=== PATIENT | female | born 2000 | race African-American/Black ===

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

== ENCOUNTER 2018-04-06 20:29 | Emergency (ER) | payer OTHER ==
[~2018-04-06] VITALS: Ht 160 cm; Wt 95.3 kg
[~2018-04-06 20:29] MED LIST changes: +FLAGYL500 MG PO; +ONDANSETRON HCL4 M2 PO
[2018-04-06] MEDS ORDERED: AMOXICILLIN875 MG PO (21:33)
[2018-04-06] MEDS ORDERED: IBUPROFEN 400400 M2 PO (21:33)
[2018-04-06 21:58] VITALS: BP 126/62
== END 2018-04-06 21:45 | disposition home or self-care (01) ==
LOC: ER 20:29
DX: H61.21 Impacted cerumen, right ear (principal); J45.909 Unspecified asthma, uncomplicated

== ENCOUNTER 2018-09-05 00:03 | Emergency (ER) | payer OTHER ==
[~2018-09-05] VITALS: Ht 160 cm; Wt 108.9 kg
[~2018-09-05 00:03] MED LIST changes: +AMOXICILLIN875 MG PO; +IBUPROFEN 400400 M2 PO
[2018-09-05 00:25] LABS: URINE BILIRUBIN NEGATIVE (Negative); URINE BLOOD NEGATIVE (Negative); URINE CLARITY CLEAR; URINE COLOR YELLOW; URINE GLUCOSE-RANDOM* NEGATIVE (Negative); URINE KETONES NEGATIVE (Negative); URINE LEUKOCYTES-REFLEX NEGATIVE (Negative); URINE NITRITE-REFLEX NEGATIVE (Negative); URINE PROTEIN (DIPSTICK) NEGATIVE (Negative); URINE SPECIFIC GRAVITY 1.015 (1.005-1.035); URINE UROBILINOGEN 0.2 E.U./dl (0.2-1.0)
[2018-09-05 00:49] LABS: ABSOLUTE NEUTROPHILS 5.8 thou/uL (1.4-8.2); BASOPHILS 0.7 % (0.0-2.0); EOSINOPHILS 2.5 % (0.0-3.0); HEMATOCRIT 33.3 % (37.0-47.0); LYMPHOCYTES 32.8 % (24.0-44.0); MCH 25.7 pg (26.0-34.0); MCV 77.8 fL (80.0-100.0); MONOCYTES 6.2 % (1.0-8.0); PLATELET COUNT 317 thou/uL (150-400); POLYS 57.8 % (36.0-66.0); RBC 4.27 mil/uL (4.20-5.00); RDW 16.2 % (10.5-14.5)
[2018-09-05 00:54] LABS: CALCIUM 8.8 mg/dL (8.5-10.1); CREATININE 0.8 mg/dL (0.6-1.0); POTASSIUM 3.4 mmol/L (3.5-5.1)
[2018-09-05 00:59] LABS: ALBUMIN 3.5 g/dL (3.4-5.0); TOTAL BILIRUBIN 0.2 mg/dL (<0.1-1.0); TOTAL PROTEIN 8.2 g/dL (6.4-8.2)
[2018-09-05] MEDS ORDERED: NAPROSYN500 MG PO (01:56)
[2018-09-05] MEDS ORDERED: ONDANSETRON HCL4 M2 PO (01:56)
[2018-09-05 02:30] VITALS: BP 118/46
== END 2018-09-05 02:31 | disposition home or self-care (01) ==
LOC: ER 00:03
PROVIDERS: Emergency Medicine
DX: N93.8 Other specified abnormal uterine and vaginal bleeding (principal); Z90.721 Acquired absence of ovaries, unilateral; Z88.5 Allergy status to narcotic agent

== ENCOUNTER 2018-10-23 19:17 | Emergency (ER) | payer OTHER ==
[~2018-10-23] VITALS: Ht 160 cm; Wt 99.8 kg
[~2018-10-23 19:17] MED LIST changes: +NAPROSYN500 MG PO
[2018-10-23 20:08] LABS: ABSOLUTE NEUTROPHILS 9.2 thou/uL (1.4-8.2); BASOPHILS 0.5 % (0.0-2.0); EOSINOPHILS 0.5 % (0.0-3.0); HEMATOCRIT 31.9 % (37.0-47.0); HEMOGLOBIN 10.4 gm/dL (12.0-15.0); MCH 25.3 pg (26.0-34.0); MCHC 32.6 g/dL (28.0-37.0); MCV 77.6 fL (80.0-100.0); MONOCYTES 4.3 % (1.0-8.0); PLATELET COUNT 294 thou/uL (150-400); POLYS 79.7 % (36.0-66.0); RBC 4.11 mil/uL (4.20-5.00); RDW 15.7 % (10.5-14.5); WBC 11.5 thou/uL (4.0-11.0)
[2018-10-23 20:20] LABS: CALCIUM 9.1 mg/dL (8.5-10.1); CREATININE 0.6 mg/dL (0.6-1.0); POTASSIUM 3.9 mmol/L (3.5-5.1)
[2018-10-23 20:27] LABS: ALBUMIN 3.6 g/dL (3.4-5.0); TOTAL BILIRUBIN 0.3 mg/dL (<0.1-1.0); TOTAL PROTEIN 8.2 g/dL (6.4-8.2)
[2018-10-23 21:06] LABS: URINE BILIRUBIN NEGATIVE (Negative); URINE BLOOD 2+ (Negative); URINE CLARITY CLEAR; URINE COLOR YELLOW; URINE GLUCOSE-RANDOM* NEGATIVE (Negative); URINE KETONES 3+ (Negative); URINE LEUKOCYTES-REFLEX NEGATIVE (Negative); URINE NITRITE-REFLEX NEGATIVE (Negative); URINE PROTEIN (DIPSTICK) NEGATIVE (Negative); URINE SPECIFIC GRAVITY >= 1.030 (1.005-1.035); URINE UROBILINOGEN 0.2 E.U./dl (0.2-1.0)
[2018-10-23 21:47] LABS: HYALINE CASTS 0-3 Few /LPF (None Seen); MUCUS >6 Heavy strn/LPF (None Seen); SQUAMOUS 0-3 Few /LPF (0-3); URINE RBC 3-10 Few /HPF (0-2); URINE WBC-REFLEX 0-5 Rare /HPF (0-5)
[2018-10-23 21:48] LABS: BACTERIA-REFLEX 1-9 Few /HPF (None Seen); CRYSTALS None Seen /LPF (None Seen)
[2018-10-23] MEDS ORDERED: IBUPROFEN 400400 M2 PO (23:57)
[2018-10-24 00:10] VITALS: BP 120/58
== END 2018-10-24 01:15 | disposition home or self-care (01) ==
LOC: ER 19:17
PROVIDERS: Student in an Organized Health Care Education/Training Program
DX: N83.201 Unspecified ovarian cyst, right side (principal); Z88.5 Allergy status to narcotic agent; Z90.721 Acquired absence of ovaries, unilateral

== ENCOUNTER 2018-10-26 12:29 | Emergency (ER) | payer OTHER ==
[~2018-10-26] VITALS: Ht 160 cm; Wt 111.1 kg
[2018-10-26 15:26] LABS: ABSOLUTE NEUTROPHILS 4.2 thou/uL (1.4-8.2); BASOPHILS 0.4 % (0.0-2.0); EOSINOPHILS 2.2 % (0.0-3.0); HEMOGLOBIN 11.1 gm/dL (12.0-15.0); LYMPHOCYTES 27.5 % (24.0-44.0); MCH 25.4 pg (26.0-34.0); MCHC 32.7 g/dL (28.0-37.0); MCV 77.7 fL (80.0-100.0); MONOCYTES 5.9 % (1.0-8.0); PLATELET COUNT 311 thou/uL (150-400); RBC 4.38 mil/uL (4.20-5.00); RDW 15.5 % (10.5-14.5); WBC 6.6 thou/uL (4.0-11.0)
[2018-10-26 15:50] LABS: URINE BLOOD 3+ (Negative); URINE CLARITY TURBID; URINE COLOR RED; URINE GLUCOSE-RANDOM* NEGATIVE (Negative); URINE KETONES TRACE (Negative); URINE LEUKOCYTES TRACE (Negative); URINE NITRITE POSITIVE (Negative); URINE PROTEIN (DIPSTICK) 2+ (Negative); URINE SPECIFIC GRAVITY >= 1.030 (1.005-1.035)
[2018-10-26 15:55] LABS: ICTOTEST (BILI CONFIRMATORY) Negative (Negative); URINE BILIRUBIN NEGATIVE (Negative)
[2018-10-26 16:01] LABS: BACTERIA 1-9 Few /HPF (None Seen); CASTS None Seen /LPF (None Seen); CRYSTALS None Seen /LPF (None Seen); SQUAMOUS None Seen /LPF (0-3); URINE RBC >20 Many /HPF (0-2); URINE WBC 0-5 Rare /HPF (0-5)
[2018-10-26 16:19] VITALS: BP 118/52
[2018-10-26] MEDS ORDERED: IBUPROFEN 600600 M1 PO (16:52)
[2018-10-26] MEDS ORDERED: KEFLEX500 M1 PO (17:03)
== END 2018-10-26 17:13 | disposition home or self-care (01) ==
LOC: ER 12:29
PROVIDERS: Nurse Practitioner
DX: T83.89XA Other specified complication of genitourinary prosthetic devices, implants and grafts, initial encounter (principal); N93.9 Abnormal uterine and vaginal bleeding, unspecified; R42 Dizziness and giddiness; Z88.5 Allergy status to narcotic agent; Z90.721 Acquired absence of ovaries, unilateral; Y83.8 Other surgical procedures as the cause of abnormal reaction of the patient, or of later complication, without mention of misadventure at the time of the procedure; Y92.89 Other specified places as the place of occurrence of the external cause

== ENCOUNTER 2018-12-03 16:03 | Emergency (ER) | payer OTHER ==
[~2018-12-03] VITALS: Ht 160 cm; Wt 108.9 kg
[~2018-12-03 16:03] MED LIST changes: +KEFLEX500 M1 PO
[2018-12-03 17:57] VITALS: BP 138/47
== END 2018-12-03 17:57 | disposition home or self-care (01) ==
LOC: ER 16:03
DX: M25.511 Pain in right shoulder (principal); Z88.5 Allergy status to narcotic agent

== ENCOUNTER 2019-01-05 18:25 | Emergency (ER) | payer OTHER ==
[~2019-01-05] VITALS: Ht 167.6 cm; Wt 127.0 kg
[2019-01-05 20:12] LABS: URINE BILIRUBIN NEGATIVE (Negative); URINE BLOOD NEGATIVE (Negative); URINE CLARITY CLEAR; URINE COLOR YELLOW; URINE GLUCOSE-RANDOM* NEGATIVE (Negative); URINE KETONES NEGATIVE (Negative); URINE LEUKOCYTES-REFLEX TRACE (Negative); URINE NITRITE-REFLEX NEGATIVE (Negative); URINE PROTEIN (DIPSTICK) NEGATIVE (Negative); URINE UROBILINOGEN 0.2 E.U./dl (0.2-1.0)
[2019-01-05 20:23] LABS: ABSOLUTE NEUTROPHILS 12.5 thou/uL (1.4-8.2); BASOPHILS 0.3 % (0.0-2.0); EOSINOPHILS 0.5 % (0.0-3.0); HEMOGLOBIN 10.7 gm/dL (12.0-15.0); MCH 25.2 pg (26.0-34.0); MCHC 32.4 g/dL (28.0-37.0); MONOCYTES 4.6 % (1.0-8.0); PLATELET COUNT 245 thou/uL (150-400); POLYS 82.6 % (36.0-66.0); RBC 4.23 mil/uL (4.20-5.00); WBC 15.2 thou/uL (4.0-11.0)
[2019-01-05 20:31] LABS: SSA (PROTEIN CONFIRMATORY) NEGATIVE (Negative)
[2019-01-05 20:42] LABS: CALCIUM 9.2 mg/dL (8.5-10.1); CREATININE 0.7 mg/dL (0.6-1.0); TOTAL BILIRUBIN 0.3 mg/dL (<0.1-1.0); TOTAL PROTEIN 8.5 g/dL (6.4-8.2)
[2019-01-05 20:47] LABS: POTASSIUM 6.6 mmol/L (3.5-5.1)
[2019-01-05] MEDS ORDERED: NOHOMEMEDICATIONS (21:12)
[2019-01-05] MEDS ORDERED: ONDANSETRON HCL4 M2 PO (21:49)
[2019-01-05] MEDS ORDERED: LEVSIN0.125 MG PO (21:49)
[2019-01-05 21:55] VITALS: BP 117/62
[2019-01-05] MEDS ORDERED: NORCO 5-325 TA1 EAC1 PO (22:01)
== END 2019-01-05 22:15 | disposition home or self-care (01) ==
LOC: ER 18:25
PROVIDERS: Physician Assistant
DX: R10.10 Upper abdominal pain, unspecified (principal); R10.30 Lower abdominal pain, unspecified; R10.84 Generalized abdominal pain; R11.10 Vomiting, unspecified; Z90.721 Acquired absence of ovaries, unilateral; Z88.5 Allergy status to narcotic agent

== ENCOUNTER 2019-04-14 14:20 | Emergency (ER) | payer OTHER ==
[~2019-04-14] VITALS: Ht 162.6 cm; Wt 106.6 kg
[~2019-04-14 14:20] MED LIST changes: +LEVSIN0.125 MG PO; +NORCO 5-325 TA1 EAC1 PO
[2019-04-14 14:58] LABS: ABSOLUTE NEUTROPHILS 3.4 thou/uL (1.4-8.2); BASOPHILS 0.9 % (0.0-2.0); HEMATOCRIT 34.3 % (37.0-47.0); HEMOGLOBIN 11.1 gm/dL (12.0-15.0); LYMPHOCYTES 34.4 % (24.0-44.0); MCH 26.1 pg (26.0-34.0); MCHC 32.3 g/dL (28.0-37.0); MCV 80.9 fL (80.0-100.0); MONOCYTES 6.4 % (1.0-8.0); PLATELET COUNT 292 thou/uL (150-400); POLYS 56.3 % (36.0-66.0); RBC 4.24 mil/uL (4.20-5.00); RDW 15.9 % (10.5-14.5)
[2019-04-14 15:02] LABS: CREATININE 0.7 mg/dL (0.6-1.0); POTASSIUM 3.6 mmol/L (3.5-5.1)
[2019-04-14 15:04] LABS: URINE BILIRUBIN NEGATIVE (Negative); URINE BLOOD NEGATIVE (Negative); URINE CLARITY CLEAR; URINE COLOR YELLOW; URINE GLUCOSE-RANDOM* NEGATIVE (Negative); URINE KETONES NEGATIVE (Negative); URINE LEUKOCYTES-REFLEX TRACE (Negative); URINE NITRITE-REFLEX NEGATIVE (Negative); URINE PROTEIN (DIPSTICK) NEGATIVE (Negative); URINE UROBILINOGEN 0.2 E.U./dl (0.2-1.0)
[2019-04-14 15:08] LABS: ALBUMIN 3.4 g/dL (3.4-5.0); TOTAL BILIRUBIN 0.2 mg/dL (<0.1-1.0)
[2019-04-14] MEDS ORDERED: ZANTAC 150MG T150 MG PO (17:31)
[2019-04-14] MEDS ORDERED: BENTYL 20 MG TA20 M1 PO (17:31)
[2019-04-14] MEDS ORDERED: ONDANSETRON HCL4 M2 PO (17:31)
[2019-04-14 18:00] VITALS: BP 123/86
== END 2019-04-14 18:00 | disposition home or self-care (01) ==
LOC: ER 14:20
PROVIDERS: Nurse Practitioner Family
DX: R10.13 Epigastric pain (principal); M25.561 Pain in right knee; E66.01 Morbid (severe) obesity due to excess calories; Z68.41 Body mass index [BMI] 40.0-44.9, adult; Z90.721 Acquired absence of ovaries, unilateral; Z88.6 Allergy status to analgesic agent

== ENCOUNTER 2019-05-27 22:25 | Emergency (ER) | payer OTHER ==
[~2019-05-27] VITALS: Ht 160 cm; Wt 116.1 kg
[~2019-05-27 22:25] MED LIST changes: +BENTYL 20 MG TA20 M1 PO
[2019-05-27 22:48] LABS: URINE BILIRUBIN NEGATIVE (Negative); URINE BLOOD NEGATIVE (Negative); URINE CLARITY CLEAR; URINE COLOR YELLOW; URINE GLUCOSE-RANDOM* NEGATIVE (Negative); URINE KETONES NEGATIVE (Negative); URINE NITRITE-REFLEX NEGATIVE (Negative); URINE PROTEIN (DIPSTICK) NEGATIVE (Negative); URINE SPECIFIC GRAVITY 1.015 (1.005-1.035); URINE UROBILINOGEN 0.2 E.U./dl (0.2-1.0)
[2019-05-27 22:49] LABS: URINE LEUKOCYTES-REFLEX 1+ (Negative)
[2019-05-27 22:59] LABS: BACTERIA-REFLEX 1-9 Few /HPF (None Seen); CRYSTALS None Seen /LPF (None Seen); HYALINE CASTS 0-3 Few /LPF (None Seen); MUCUS 0-3 Light strn/LPF (None Seen); SQUAMOUS 4-10 Moderate /LPF (0-3); TRANSITIONAL EPITHEL CELL 0-3 Few /LPF (None Seen); URINE RBC 0-2 Rare /HPF (0-2); URINE WBC-REFLEX 6-15 Few /HPF (0-5)
[2019-05-27] MEDS ORDERED: MEDROLDOSEPACK PO (23:04)
[2019-05-27] MEDS ORDERED: FLEXERIL PO (23:04)
[2019-05-27] MEDS ORDERED: NAPROSYN500 MG PO (23:04)
[2019-05-27 23:30] VITALS: BP 134/78
== END 2019-05-27 23:30 | disposition home or self-care (01) ==
LOC: ER 22:25
PROVIDERS: Emergency Medicine
DX: M54.5 Low back pain (principal); Z90.721 Acquired absence of ovaries, unilateral; Z88.5 Allergy status to narcotic agent

== ENCOUNTER 2020-12-01 00:32 | Emergency (ER) | payer OTHER ==
[~2020-12-01] VITALS: Ht 160 cm; Wt 108.9 kg
[~2020-12-01 00:32] MED LIST changes: +FLEXERIL PO; +MEDROLDOSEPACK PO
[2020-12-01] MEDS ORDERED: NAPROXEN250 MG PO (01:20)
[2020-12-01] MEDS ORDERED: FLEXERIL PO (01:20)
[2020-12-01] MEDS ORDERED: PENICILLIN V P500 MG PO (01:20)
[2020-12-01 02:34] VITALS: BP 109/60
== END 2020-12-01 02:47 | disposition home or self-care (01) ==
LOC: ER 00:32
DX: R51.9 Headache, unspecified (principal); K02.9 Dental caries, unspecified; Z88.5 Allergy status to narcotic agent; Z90.89 Acquired absence of other organs; V49.88XA Car occupant (driver) (passenger) injured in other specified transport accidents, initial encounter; Y93.89 Activity, other specified; Y92.413 State road as the place of occurrence of the external cause; Y99.9 Unspecified external cause status

== ENCOUNTER 2021-02-09 20:35 | Emergency (ER) | payer OTHER ==
[~2021-02-09] VITALS: Ht 160 cm; Wt 108.4 kg
[~2021-02-09 20:35] MED LIST changes: +NAPROXEN250 MG PO; +PENICILLIN V P500 MG PO
[2021-02-09 22:09] VITALS: BP 127/77
== END 2021-02-09 22:11 | disposition home or self-care (01) ==
LOC: ER 20:35
DX: U07.1 COVID-19 (principal); R06.02 Shortness of breath; Z90.721 Acquired absence of ovaries, unilateral; Z88.6 Allergy status to analgesic agent

== ENCOUNTER 2021-08-27 15:51 | Emergency (ER) | payer OTHER ==
[~2021-08-27] VITALS: Ht 160 cm; Wt 109.8 kg
[2021-08-27 16:35] VITALS: BP 127/42
== END 2021-08-27 16:36 | disposition home or self-care (01) ==
LOC: ER 15:51
DX: S61.411A Laceration without foreign body of right hand, initial encounter (principal); Z88.5 Allergy status to narcotic agent; W25.XXXA Contact with sharp glass, initial encounter; Y93.G1 Activity, food preparation and clean up; Y92.89 Other specified places as the place of occurrence of the external cause; Y99.8 Other external cause status